=== PATIENT | male | born 1995 | race Two or more races ===

== ENCOUNTER 2017-10-05 11:45 | Emergency (ER) | payer MEDICAID, OTHER ==
[~2017-10-05] VITALS: Ht 177.8 cm; Wt 63.5 kg
[2017-10-05 11:54] VITALS: BP 112/75
== END 2017-10-05 12:55 | disposition left against medical advice (07) ==
LOC: EDSEX 11:45 → ER 11:51
DX: R55 Syncope and collapse (principal); Z53.21 Procedure and treatment not carried out due to patient leaving prior to being seen by health care provider
CPT/HCPCS: 93005